=== PATIENT | female | born 1960 | race Two or more races ===

== ENCOUNTER 2024-02-16 05:09 | Inpatient (IN) | payer OTHER ==
[~2024-02-16] VITALS: Ht 160 cm; Wt 74.4 kg
[2024-02-16] MEDS ORDERED: COZAAR50 MG (05:17)
[2024-02-16] MEDS ORDERED: ATIVAN0.5 M1 (05:17)
[2024-02-16] MEDS ORDERED: RINGERS SOLUTION,LACTATED 1,000 ML IV STA (06:56)
[2024-02-16] MEDS ORDERED: ONDANSETRON HCL 2 MG/ML VIAL IV STA (06:57)
[2024-02-16] MEDS ORDERED: FAMOtidine 10 MG/ML (4ML VIAL) IV PUSH STA (06:57)
[2024-02-16] MEDS ORDERED: HYOSCYAMINE SULFATE 0.125 MG TAB.SUBL SL ONE (07:00)
[2024-02-16 08:01] LABS: HEMATOCRIT 39.4 % (36.0-45.00); HEMOGLOBIN 13.6 g/dL (12.0-15.00); MEAN CELL VOLUME 96.3 fL (80.00-100.00); MEAN CORPUSCULAR HEMOGLOBIN 33.3 pg (27.00-32.0); MEAN CORPUSCULAR HGB CONC 34.5 g/dl (32.0-36.0); RED BLOOD COUNT 4.09 M/uL (4.00-6.00); RED CELL DISTRIBUTION WIDTH 13.2 % (11.5-14.5)
[2024-02-16 08:04] LABS: PLATELET COUNT 71 K/uL (150-450)
[2024-02-16 08:16] LABS: ALBUMIN 3.2 gm/dL (3.4-5.0); BILIRUBIN TOTAL 0.62 mg/dL (0.3-1.2); CALCIUM 8.5 mg/dL (8.5-10.1); CREATININE SERUM 0.78 mg/dL (0.55-1.02); GFR 74.59; GLOBULINA 3.8 G/DL (2.4-3.5); POTASSIUM 3.88 mEq/L (3.5-5.1)
[2024-02-16 08:51] LABS: URINE BILIRRUBIN Negative (NEGATIVE); URINE BLOOD Negative; URINE COLOR Yellow; URINE GLUCOSE Negative (NEGATIVE); URINE KETONE Negative (NEGATIVE); URINE LEUKOCYTE Negative; URINE NITRATE Negative; URINE PROTEIN Trace (NEGATIVE); URINE UROBILINOGEN 0.2 E.U./dl
[2024-02-16 08:56] LABS: URINE BACTERIA 442.2 uL (0.0-1933); URINE CAST 1.67 uL (0.0-1.40); URINE EPITHELIAL CELLS 25.9 uL (0.0-38.8); URINE RBC 8.8 uL (0.0-20.8); URINE WBC 10.5 uL (0.0-23.2)
[2024-02-16 09:16] LABS: URINE APPEARANCE SL CLOUDY
[2024-02-16 09:18] LABS: URINE EPITHELIAL CELLS 0-4 /HPF
[2024-02-16] MEDS ORDERED: PIPERACILLIN/TAZOBACTAM SODIUM 3.375 GM in 0.9 % SODIUM CHLORIDE 100 ML IV SCH (12:08)
[2024-02-16] MEDS ORDERED: PANTOPRAZOLE SODIUM 40 MG/VIAL VIAL IV SCH (12:11)
[2024-02-16] MEDS ORDERED: RINGERS SOLUTION,LACTATED 1,000 ML IV SCH (12:30)
[2024-02-16] MEDS ORDERED: LOSARTAN POTASSIUM 50 MG TABLET PO SCH (12:38)
[2024-02-16] MEDS ORDERED: MEPERIDINE HCL/PF 25 MG/ML VIAL IM ONE (12:45)
[2024-02-16 15:15] LABS: INR 1.06; PARTIAL THROMBOPLASTIN TIME 32.2 SECONDS (22.0-34.0); PROTHROMBIN TIME 11.5 SECONDS (9.0-11.5)
[2024-02-16 15:18] VITALS: BP 93/54; O2SAT 97
[2024-02-16 19:02] VITALS: BP 124/63
[2024-02-17 02:32] VITALS: BP 127/63
[2024-02-17 04:22] LABS: HEMATOCRIT 38.2 % (36.0-45.00); HEMOGLOBIN 13.1 g/dL (12.0-15.00); MEAN CELL VOLUME 96.4 fL (80.00-100.00); MEAN CORPUSCULAR HEMOGLOBIN 33.1 pg (27.00-32.0); MEAN CORPUSCULAR HGB CONC 34.4 g/dl (32.0-36.0); RED BLOOD COUNT 3.96 M/uL (4.00-6.00); RED CELL DISTRIBUTION WIDTH 13.3 % (11.5-14.5)
[2024-02-17 04:25] LABS: PLATELET COUNT 55 K/uL (150-450)
[2024-02-17] MEDS ORDERED: MORPHINE SULFATE 4 MG/ML CARTRIDGE IV PRN (05:45)
[2024-02-17 08:29] VITALS: BP 136/58
[2024-02-17 08:56] VITALS: BP 146/65
[2024-02-17 18:06] VITALS: BP 143/74
[2024-02-18 02:31] VITALS: BP 153/74
[2024-02-18 08:06] LABS: HEMATOCRIT 38.7 % (36.0-45.00); HEMOGLOBIN 13.4 g/dL (12.0-15.00); MEAN CELL VOLUME 96.5 fL (80.00-100.00); MEAN CORPUSCULAR HEMOGLOBIN 33.3 pg (27.00-32.0); MEAN CORPUSCULAR HGB CONC 34.5 g/dl (32.0-36.0); RED BLOOD COUNT 4.01 M/uL (4.00-6.00); RED CELL DISTRIBUTION WIDTH 13.1 % (11.5-14.5)
[2024-02-18 08:18] LABS: ALBUMIN 3.1 gm/dL (3.4-5.0); BILIRUBIN TOTAL 0.75 mg/dL (0.3-1.2); CALCIUM 8.9 mg/dL (8.5-10.1); CREATININE SERUM 0.75 mg/dL (0.55-1.02); GFR 78.05; GLOBULINA 3.5 G/DL (2.4-3.5); POTASSIUM 3.8 mEq/L (3.5-5.1); TOTAL PROTEIN 6.6 gm/dL (6.4-8.2)
[2024-02-18 08:26] LABS: PLATELET COUNT 65 K/uL (150-450)
[2024-02-18 08:30] VITALS: BP 124/50; O2SAT 97
[2024-02-18] MEDS ORDERED: 0.9 % SODIUM CHLORIDE 1,000 ML IV SCH (15:30)
[2024-02-18 17:48] VITALS: BP 173/77
[2024-02-19 06:37] LABS: ALBUMIN 3.1 gm/dL (3.4-5.0); BILIRUBIN TOTAL 0.92 mg/dL (0.3-1.2); CALCIUM 8.8 mg/dL (8.5-10.1); CREATININE SERUM 0.7 mg/dL (0.55-1.02); GFR 84.51; GLOBULINA 3.6 G/DL (2.4-3.5); POTASSIUM 3.9 mEq/L (3.5-5.1); TOTAL PROTEIN 6.7 gm/dL (6.4-8.2)
[2024-02-19 06:45] LABS: HEMATOCRIT 37.7 % (36.0-45.00); MEAN CELL VOLUME 96.3 fL (80.00-100.00); MEAN CORPUSCULAR HEMOGLOBIN 33.1 pg (27.00-32.0); MEAN CORPUSCULAR HGB CONC 34.4 g/dl (32.0-36.0); RED BLOOD COUNT 3.91 M/uL (4.00-6.00); RED CELL DISTRIBUTION WIDTH 13.1 % (11.5-14.5)
[2024-02-19 06:58] LABS: PLATELET COUNT 78 K/uL (150-450)
[2024-02-19 08:10] VITALS: BP 140/68
== END 2024-02-19 16:04 | disposition home or self-care (01) | DRG 866 ==
LOC: ER 05:09 → MEDI 12:00
PROVIDERS: General Practice; ADMIT Internal Medicine; ATTEND Internal Medicine
PROC: BW21ZZZ Computerized Tomography (CT Scan) of Abdomen and Pelvis (ICD-10-PCS; principal; 2024-02-16)
PROC: BW40ZZZ Ultrasonography of Abdomen (ICD-10-PCS; 2024-02-17)
DX: A90 Dengue fever [classical dengue] (principal); K52.9 Noninfective gastroenteritis and colitis, unspecified; K81.9 Cholecystitis, unspecified; E86.0 Dehydration; B34.9 Viral infection, unspecified; D69.6 Thrombocytopenia, unspecified; I10 Essential (primary) hypertension